=== PATIENT | male | born 1970 | race Caucasian/White ===

== ENCOUNTER 2017-08-07 13:33 | Inpatient (IN) | payer SELFPAY ==
[~2017-08-07] VITALS: Ht 175.3 cm; Wt 55.0 kg
[2017-08-07] VITALS (24 sets, daily range): BP systolic 74–129; BP diastolic 45–99
[~2017-08-07 13:33] MED LIST: ATEN-1 PO
[2017-08-07] MEDS ORDERED: THIAMINE HCL(*) 200 MG/2 ML IN 100 MG, FOLIC ACID(*) 50 MG/10 ML INJ 1 MG, MULTIVITAMIN... IV ONE (13:50)
[2017-08-07] MEDS ORDERED: DIAZEPAM 10 MG/2 ML SYR IVP ONE ×4 (13:50→16:25)
[2017-08-07] MEDS ORDERED: vitamins (13:56)
--- NOTE | 2017-08-07 13:58 | EKG ---
FACILITY: [facility] - [place] PATIENT NAME: QUETA VINES : [id number] MR: [id number] V: [id number] EXAM DATE: ORDERING PHYSICIAN: MEAGHAN MEIER TECHNOLOGIST: Test Reason : tachycardia Blood Pressure : / mmHG Vent. Rate : 125 BPM Atrial Rate : 125 BPM P-R Int : 130 ms QRS Dur : 100 ms QT Int : 332 ms P-R-T Axes : 071 082 -58 degrees QTc Int : 479 ms Sinus tachycardia Nonspecific ST and T wave abnormality Abnormal ECG When compared with ECG of 20-JUN-2017 13:55, T wave inversion now evident in Inferior leads Confirmed by DORA VALADEZ ([id number]) on 08/07/2017 5:12:32 PM Referred By: Confirmed By:DORA VALADEZ
[2017-08-07 13:59] LABS: PLATELET COUNT, AUTOMATED 91 K/uL (150-450)
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
[2017-08-07] MEDS ORDERED: MAGNESIUM SUL* 2 GM/50 ML IVPB 50 ML IVPB ONE ×2 (14:10→17:10)
--- NOTE | 2017-08-07 15:43 | RADIOLOGY IMAGING REPORT ---
FACILITY: [facility] - [place] PATIENT NAME: Josué Haque : 1970 MR: [id number] V: [id number] EXAM DATE: ORDERING PHYSICIAN: MEAGHAN MEIER TECHNOLOGIST: Location: [facility] [place] Patient: Josué Haque : 1970 Visit/Account:[id number] Date of Sevice: 08/07/2017 CT Head without contrast Indication: Seizure. Comparison: 06/20/2017. Technique: Axial CT images were obtained through the brain from the skull base to the vertex without administration of IV contrast. Reformatted coronal and sagittal images were also obtained. One of the following dose optimization techniques was utilized in the performance of this exam: autom ated exposure control; adjustment of the mA and/or kV according to the patient's size; or use of an i terative reconstruction technique. Specific details can be referenced in the facility's radiology CT exam operational policy. Findings: No evidence of mass, mass effect, or midline shift. No acute intracranial hemorrhage or acute territorial infarction. No extra axial fluid collection or hydrocephalus. No abnormal density. Sharma/white matter differentiat ion appears normal. Bony structures show no fractures or lesions. There is continued mucosal thickening seen in both maxillary sinuses. The remaining sinuses and masto ids visualized are clear. IMPRESSION: 1. No acute intracranial abnormality. 2. Continued bilateral maxillary sinus disease. Report Dictated By: Raj Rivera at 08/07/2017 3:34 PM Report E-Signed By: Raj Rivera at 08/07/2017 3:39 PM WSN:[id number]
--- NOTE | 2017-08-07 16:31 | RADIOLOGY IMAGING REPORT ---
FACILITY: [facility] PATIENT NAME: Josué Haque : 1970 MR: [id number] V: [id number] EXAM DATE: ORDERING PHYSICIAN: MEAGHAN MEIER TECHNOLOGIST: Location: [facility] Patient: Josué Hqaue : 1970 Visit/Account:[id number] Date of Sevice: 08/07/2017 Chest 2 views: HISTORY: Seizure, hypoxia. COMPARISON: None. FINDINGS: Frontal and lateral chest: Cardiomediastinal silhouette is within normal limits. There is no infiltrate or pleural effusion. No pneumothorax. Pulmonary vasculature is normal. Multiple old left rib fractures are noted. Focal density present in the right eighth rib medially ma y be residua of a remote fracture. There is wedging of what is T9 and T12. T12 compression was seen on a previous CT scan. IMPRESSION: 1. No evidence of acute cardiopulmonary abnormality. 2. Multiple old left rib fractures, possible old right rib fracture as well as thoracic compression fractures. Chronicity of a T9 compression fracture is uncertain, correlate with any acute pain. Report Dictated By: Chel Jarvis MD at 08/07/2017 4:24 PM Report E-Signed By: Chel Jarvis MD at 08/07/2017 4:27 PM WSN:[email or web address]
[2017-08-07] MEDS ORDERED: DEXMEDETOMIDINE IN 0.9 % NACL 100 ML IV PRN ×2 (16:35→16:45)
[2017-08-07] MEDS ORDERED: LORazepam 2 MG/ML VIAL IVP PRN (16:35)
[2017-08-07] MEDS ORDERED: KCL 2 MEQ/ML 20 MEQ/10 ML VIAL 20 MEQ in D5NS(*) 1000 ML BAG 1,000 ML IV PRN (17:10)
[2017-08-07] MEDS ORDERED: INSULIN HUM LISPRO 100 UN/ML 3 ML VIAL SUBQ PRN (17:15)
--- NOTE | 2017-08-07 17:23 | History & Physical ---
History of Present Illness History of Present Illness 46yo male with h/o alcohol abuse with alcohol withdrawal seizures who came to the ER for seizures. Most of the history is from his significant other. He was admitted here from 06/20 until 06/23 for alcohol withdrawal and seizures. He required ICU placement and was put on Precedex, which he did very well on. He has been drinking about 1/5 of vodka a day about a week after discharge. 3 days ago, he also drank about 6-8 shots of [employer]. He started vomiting later that night and has continued to do so. No reported blood in the vomit or coffee grounds. He was having visual hallucinations 2 days ago and has continued to have them. He has tried to drink alcohol, but keeps vomiting it up. His last attempted drink was last night. This morning at about 0430, his significant other witnessed a seizure. It is unclear how long it lasted. About 10 minutes later, he had another. He had another 2 seizures at about 1130 and then one more at 1330, so she brought him to the ER. All of the seizures occurred while he was in bed and he did not have any falls. He denies f/c/sob/cp/abdominal pain. He reports having seizure and then a fall in the past and then developing an intracranial bleed. He has been in a rehab facility about 6-12 months ago. He is unable to give any more details. In the ER, he as been give a liter of a Banana bag, and Valium IV (15mg in total ). History Problems: (1) History of intracranial hemorrhage Status: Resolved (2) Alcohol withdrawal Status: Acute (3) History of appendectomy Status: Resolved Home Meds Active Scripts Atenolol (ATENOLOL) 50 Mg Tablet, 1 TAB PO QDAY for 30 Days, #30 TAB Prov:VENU HUGGINS MD 06/23/17 Reported Medications [vitamins] No Conflict Check 08/07/17 Allergies: Coded Allergies: No Known Drug Allergies (Unverified , 08/07/17) Hx Smoking: No Hx Alcohol Use: Yes (08/03 daily) Hx Substance Use Disorder: No Review of Systems All Systems Reviewed/Normal: Yes, Except as Noted Exam Vital Signs Vital Signs Date Time Temp Pulse Resp B/P (MAP) Pulse Ox O2 Delivery O2 Flow Rate FiO2 08/07/17 16:00 116/93 (101) 08/07/17 15:35 121 97 08/07/17 15:03 14 08/07/17 13:47 99.4 Room Air General Appearance: Awake, Other (He is mildly agitated. Normal work of breathing) Neuro: No Gross deficits (Doesn't know where he is, but knows he had a seizure. ) ENT: Moist Mucous Membranes, Other (Geographic tongue and no evidence of acute injury to it or the buccal mucosa) Cardiovascular: Other (Tachy, regular) Respiratory: Clear to Auscultation GI: Abd Soft and Non-Tender Extremities: No Edema Integumentary: No Jaundice, No Cyanosis Medical Decision Making Data Points Result Diagram: 08/07/17 1345 08/07/17 1345 Item Value Date Time Mean Corpuscular Volume 96.3 fL H 08/07/17 1345 Platelet Count 91 K/uL L 08/07/17 1345 Platelet Count 59 K/uL L 06/22/17 0500 Arterial Blood pH 7.50 H 08/07/17 1401 Arterial Blood Partial Pressure CO2 27 mmHg L 08/07/17 1401 Arterial Blood Partial Pressure O2 65 mmHg 08/07/17 1401 Arterial Blood HCO3 21 mmol/L 08/07/17 1401 Arterial Blood Oxygen Saturation 94 % 08/07/17 1401 Serum Alcohol < 10 mg/dl 08/07/17 1345 Troponin I < 0.012 ng/ml 08/07/17 1345 Whole Blood Glucose 179 mg/DL H 08/07/17 1404 Random Glucose 167 mg/dl H 08/07/17 1345 Sodium Level 132 mmol/L L 08/07/17 1345 Potassium Level 3.4 mmol/L L 08/07/17 1345 Chloride Level 89 mmol/L L 08/07/17 1345 Carbon Dioxide Level 25 mmol/L 08/07/17 1345 Blood Urea Nitrogen 18 mg/dl 08/07/17 1345 Creatinine 1.00 mg/dl 08/07/17 1345 Magnesium Level 1.5 mg/dl L 08/07/17 1345 Total Bilirubin 1.4 mg/dl H 08/07/17 1345 Aspartate Amino Transf (AST/SGOT) 114 U/L H 08/07/17 1345 Alanine Aminotransferase (ALT/SGPT) 50 U/L 08/07/17 1345 Alkaline Phosphatase 111 U/L 08/07/17 1345 Total Protein 8.0 gm/dl 08/07/17 1345 Albumin 4.2 g/dl 08/07/17 1345 EKG / Imaging EKG Interpretation Sinus tachy with diffuse ST-T abnormalities. Now with possible T inversion inferiorly compared to previous. Imaging CXR - 1. No evidence of acute cardiopulmonary abnormality. 2. Multiple old left rib fractures, possible old right rib fracture as well as thoracic compression fractures. Chronicity of a T9 compression fracture is uncertain, correlate with any acute pain. Head CT - 1. No acute intracranial abnormality. 2. Continued bilateral maxillary sinus disease. Assessment and Plan Problems: (1) Alcohol withdrawal Status: Acute Assessment & Plan: He presented with 3 days of decreased alcohol intake secondary to vomiting. He began having visual hallucinations 2 days ago. His last drink was last night. He has had about 5 seizures today with the first starting at about 0430. He has been given a banana bag and 20mg of Valium IV. He will be admitted to the ICU, with the plan to use Precedex again (like in May) for withdrawal with the hope of avoiding intubation for airway protection. He will be given oral Thiamine and Folate. Will replace Mg and follow it and K. He is getting D5 NS with 20mEq for IVF. Check Lipase secondary to the vomiting and will recheck troponin in the morning because he has some T wave inversion inferiorly. (2) Hyperglycemia Status: Acute Assessment & Plan: Will follow and give SSI level 2 to cover. Check HgA1c tomorrow. (3) Thrombocytopenia Status: Chronic Assessment & Plan: Secondary to alcohol use. Will use SCD for DVT prophylaxis. He does have a h/o an intracranial bleed secondary to a fall from a seizure. Venous Thromboembolism Antithrombotics Is Pt On Any Antithrombotics?: No Prophylaxis Tx Contraindicated Pharmacological Contraindicati: Low Platelet Count Exam Sepsis Risk: No Definite Risk Problem Qualifiers (1) Alcohol withdrawal: Complication of substance-induced condition: with unspecified complication Qualified Codes: F10.239 - Alcohol dependence with withdrawal, unspecified DORA VALADEZ MD Aug 07, 2017 17:22
[2017-08-07] MEDS: KCL/DNS 20 MEQ/1000 ML PREMIX 1,000 ML IV PRN (17:29)
[2017-08-08] VITALS (39 sets, daily range): BP systolic 81–139; BP diastolic 59–106; Ht 175.3 cm; Wt 55.0 kg
[2017-08-08 05:20] LABS: PLATELET COUNT, AUTOMATED 53 K/uL (150-450)
[2017-08-08 05:22] LABS: INR 1.09
[2017-08-08] MEDS ORDERED: NS 0.9% IV ONE (07:45)
[2017-08-08] MEDS ORDERED: KCL IV ONE (07:45)
[2017-08-08] MEDS ORDERED: KCL (*) 20 MEQ/100 ML PREMIX 100 ML IV ONE (07:55)
[2017-08-08] MEDS: KCL/DNS 20 MEQ/1000 ML PREMIX 1,000 ML IV PRN ×2 (08:05→22:34)
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
[2017-08-08] MEDS: THIAMINE HCL 100 MG TAB PO SCH (08:19)
[2017-08-08] MEDS: FOLIC ACID 1 MG TAB PO SCH (08:19)
[2017-08-09] VITALS (14 sets, daily range): BP systolic 121–161; BP diastolic 97–134
[2017-08-09 05:18] LABS: PLATELET COUNT, AUTOMATED 51 K/uL (150-450)
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
[2017-08-09] MEDS: KCL (*) 20 MEQ/100 ML PREMIX 100 ML IV SCH ×2 (07:33→09:45)
[2017-08-09] MEDS ORDERED: ATENOLOL 50 MG TAB PO SCH (09:00)
[2017-08-09] MEDS: THIAMINE HCL 100 MG TAB PO SCH (09:05)
[2017-08-09] MEDS: FOLIC ACID 1 MG TAB PO SCH (09:05)
[2017-08-09] MEDS ORDERED: ATEN-1 PO (14:09)
[2017-08-09] MEDS ORDERED: FOLI-68 PO (14:09)
[2017-08-09] MEDS ORDERED: THIA100T58 PO (14:09)
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
[2017-08-09] MEDS ORDERED: INFLUENZA VIRUS VAC 0.5 ML SYR IM ONLY ONE (16:35)
== END 2017-08-09 18:14 | disposition home or self-care (01) | DRG 897 ==
LOC: ER 13:41 → ICU 16:36
PROVIDERS: ADMIT Internal Medicine; ATTEND Internal Medicine
DX: F10.232 Alcohol dependence with withdrawal with perceptual disturbance (principal); E87.1 Hypo-osmolality and hyponatremia; D69.59 Other secondary thrombocytopenia; E87.6 Hypokalemia; I10 Essential (primary) hypertension; R73.9 Hyperglycemia, unspecified; R56.9 Unspecified convulsions; F32.9 Major depressive disorder, single episode, unspecified; Y90.0 Blood alcohol level of less than 20 mg/100 ml; Z87.820 Personal history of traumatic brain injury
CPT/HCPCS: 36415; 36416; 36600; 70450; 71046; 80320; 82040; 82150; 82247; 82310; 82374; 82435; 82565; 82803; 82947; 82948; 83036; 83690; 83735; 84075; 84132; 84155; 84295; 84450; 84460; 84484; 84520; 85025; 85610; 93005; 95819; 96365; 96367; 96375; 96376; 99285; C1758; J3360; J3411; J3475; J3480; J7030

== ENCOUNTER → 2017-10-10 | Outpatient (REF) ==
[2017-08-08 08:17] VITALS: BMI 17.3
[~2017-10-10] MED LIST changes: +FOLI-68 PO; +THIA100T58 PO; +vitamins
--- NOTE | 2017-10-10 18:28 | RT STRESS TEST REPORT ---
FACILITY: [facility] PATIENT NAME: QUETA VINES : [id number] MR: [id number]: [id number] EXAM DATE: ORDERING PHYSICIAN: CLEOPATRA MONACO TECHNOLOGIST: Shree Acquisition Time: 2017-10-10 14:12:46 Total Exercise Time: 00:09:25 Test Indications: Chest Pain / Discomfort Medications: Trazadone Protocol: BRUCE2 Max HR: 160 BPM 93% of Pred: 171 BPM Max BP: 195/086 mmHG Max Work Load: 10.7 METS Confirmed by ELLE BOOKER ([id number]) on 10/10/2017 6:27:55 PM Referred By: Cleopatra Monaco Overread By: ELLE BOOKER
== END ==
LOC: RESP 13:59
PROVIDERS: ATTEND Nurse Practitioner
DX: R07.9 Chest pain, unspecified (principal); R94.39 Abnormal result of other cardiovascular function study
CPT/HCPCS: 93017